=== PATIENT | male | born 1955 | race Caucasian/White ===

== ENCOUNTER 2019-07-07 22:24 | Emergency (ER) | payer OTHER, MEDICAID ==
[~2019-07-07] VITALS: Ht 180.3 cm; Wt 68.0 kg
--- NOTE | 2019-07-07 22:25 | NUR ---
PT BIBA TO BED 05.
--- NOTE | 2019-07-07 22:26 | NUR ---
PT AMBULATED FROM [facility] TO [facility] WITH STEADY GAIT
[2019-07-07 22:27] VITALS: BP 115/74
--- NOTE | 2019-07-07 22:30 | NUR ---
REGINE FROM [facility]. PER EMS, PTS BASELINE AA0X4. PT NON-ORIENTED TO TIME UPON TRIAGE. PER FACILITY, PT HAS STATES THAT HE HAS HAD VISUAL HALLUCINATIONS. PT DENIES HALLUCINATIONS AT THIS TIME. PT ADDS HE IS HAVING CONSTIPATION, UNKNOWN LAST BM. BOWEL SOUNDS ACTIVE IN ALL 4 QUADRANTS. ABDOMEN SOFT AND ORUND, NON-TENDER. VSS. NO DISTRESS NOTED. BED IS DOWN, LOCKED, RAIL X 1, ERMD TO SEE PT. PMH- HTN, ANXIETY
[2019-07-07] MEDS ORDERED: NACL 0.9% 500 ML IV SCH (22:39)
--- NOTE | 2019-07-07 22:42 | NUR ---
DR. GUNTER BEDSIDE EVALUATING PT
--- NOTE | 2019-07-07 22:50 | NUR ---
EKG PERFORMED AT BEDSIDE
--- NOTE | 2019-07-07 22:57 | NUR ---
PT TO RESTROOM WITH A STEADY GAIT
--- NOTE | 2019-07-07 23:00 | NUR ---
PT UNABLE TO GIVE URINE AT THIS TIME
--- NOTE | 2019-07-07 23:08 | NUR ---
PT TAKEN TO CT VIA WC
--- NOTE | 2019-07-07 23:30 | NUR ---
PT RETURNED FROM CT VIA WC
--- NOTE | 2019-07-07 23:33 | NUR ---
XRAY AT BEDSIDE
--- NOTE | 2019-07-07 23:44 | NUR ---
LAB AT BEDSIDE
[2019-07-08 00:04] LABS: HEMATOCRIT 49.9 % (36-52); HEMOGLOBIN 16.6 g/dL (12.0-18.0); MEAN CORPUSCULAR HEMOGLOBIN 30 pg (27-31); MEAN CORPUSCULAR HGB CONC 33 g/dL (33-37); MEAN CORPUSCULAR VOLUME 91.1 fL (80-94); PLATELET COUNT (AUTO) 234 K/uL (140-450); RED BLOOD CELL COUNT(AUTO) 5.48 MIL/uL (4.20-6.10); RED CELL DISTRIBUTION WIDTH 14.1 % (11.6-13.7); WHITE BLOOD COUNT (AUTO) 9.4 K/uL (4.8-10.8)
[2019-07-08 00:17] LABS: EOSINOPHILS % (MANUAL) 2 % (0-4); LYMPHOCYTES % (MANUAL) 14 % (20-46); MONOCYTES % (MANUAL) 5 % (5-12)
--- NOTE | 2019-07-08 00:17 | NUR ---
# 14 FR Urinary catheter inserted utilizing sterile technique. Immediate return of 30 ml YELLOW urine noted. Urine sample collected and sent to lab. Pt tolerated procedure WELL. UPON VISUAL EXAMINATION, PT HAS ENLARGED SCROTOM DUE TO PROSTATE PROBLEMS
[2019-07-08 00:18] LABS: ANION GAP 11.3 (8-16); CREATININE 1.2 mg/dL (0.7-1.3); POTASSIUM 4.3 mmol/L (3.5-5.1)
[2019-07-08 00:20] LABS: PROTHROMBIN TIME 9.9 secs (10.8-13.4)
[2019-07-08 00:21] LABS: ACETAMINOPHEN < 0.5 ug/ml (10-30); SALICYLATE < 2.8 mg/dL (2.8-20.0)
[2019-07-08 00:29] LABS: APPEARANCE,URINE CLEAR (CLEAR); BILIRUBIN,URINE NEGATIVE (NEGATIVE); BLOOD, URINE NEGATIVE (NEGATIVE); COLOR,URINE YELLOW (YELLOW); LEUKOCYTE ESTERASE ,URINE NEGATIVE (NEGATIVE); NITRITE, URINE NEGATIVE (NEGATIVE); PH,URINE 7.5 (5.0-9.0); UGLUCOSE NEGATIVE (NEGATIVE)
[2019-07-08] MEDS ORDERED: LORazepam 2 MG/ML VIAL IVP ONE (00:30)
[2019-07-08 00:33] LABS: ALBUMIN 3.7 g/dL (3.4-5.0); TOTAL BILIRUBIN 0.6 mg/dL (0.0-1.0)
[2019-07-08 00:35] LABS: BARBITURATE, URINE NEG. ng/ml (NEG <=200); BENZODIAZEPINE, URINE POS. ng/mL (NEG <=200); CANNABINOID, URINE NEG. ng/mL (NEG <=50); COCAINE, URINE NEG. ng/mL (NEG <=300); OPIATE, URINE NEG. ng/mL (NEG <=2000); PHENCYCLIDINE SCREEN,URINE NEG. ng/mL (NEG <=25)
[2019-07-08 00:38] LABS: RBC,URINE 0-5 /HPF (0-5); WBC,URINE 0-5 /HPF (0-5)
--- NOTE | 2019-07-08 00:45 | NUR ---
SPOKE TO SADE, PT DAUGHTER. CONTACT NUMBER IS [phone]
--- NOTE | 2019-07-08 00:50 | NUR ---
PT LAYING IN BED, RR EVEN AND UNLABORED. DENIES ANY PAIN. VSS. ALL NEEDS MET.
--- NOTE | 2019-07-08 00:50 | NUR ---
DAUGHTER SADE WILL MOBILITY ARCHITECT PT. D/C PENDING. ERMD MADE AWARE
[2019-07-08 01:00] VITALS: BP 110/87
--- NOTE | 2019-07-08 01:00 | NUR ---
Patient discharged with v/s stable. Written and verbal after care instructions given and explained. Patient alert, oriented X 4 and verbalized understanding of instructions. Ambulatory with steady gait. All questions addressed prior to discharge. ID band removed. Patient advised to follow up with PMD. Rx of XANAX given. Patient educated on indication of medication including possible reaction and side effects. Opportunity to ask questions provided and answered.
--- NOTE | 2019-07-08 01:12 | NUR ---
ASIISTED PT WITH GETTING DRESSED. WAITING IN CHAIR FOR SISTER TO INTERIOR WIRER Addendum: 07/08/19 at 0115 by [email or web address] PTS DAUGHTER
--- NOTE | 2019-07-08 01:16 | NUR ---
PTS DAUGHTER PRESENT FOR PICKUP. DISCHARGE INSTRUCTIONS GIVEN TO PT Addendum: 07/08/19 at 0117 by [email or web address] PRESCRIPTION GIVEN TO DAUGHTER AND DISCHARGE EXPLANATIONS EXPLAINED TO DAUGHTER
== END 2019-07-08 01:00 | disposition home or self-care (01) ==
LOC: MED 22:24
DX: F32.9 Major depressive disorder, single episode, unspecified (principal); J45.909 Unspecified asthma, uncomplicated; K21.9 Gastro-esophageal reflux disease without esophagitis; I10 Essential (primary) hypertension; F41.9 Anxiety disorder, unspecified; Z88.0 Allergy status to penicillin
CPT/HCPCS: 36415; 70450; 71045; 74176; 80053; 80305; 81001; 83605; 83880; 84484; 85025; 85610; 85730; 87040; 87086; 93005; 96374; 99284; C1758; G0480; G0482; J2060; J7030; Q0092

== ENCOUNTER 2019-11-29 11:59 | Inpatient (IN) | payer OTHER, MEDICAID ==
[2019-11-29] VITALS (7 sets, daily range): BP systolic 80–146; BP diastolic 42–91
[~2019-11-29] VITALS: Ht 172.7 cm; Wt 81.6 kg
--- NOTE | 2019-11-29 12:25 | NUR ---
7 DAYS GENERALIZED WEAKNESS ,UNABLE TO EAT,AWAKE ,ALERT, AFIBRILE WITH UNSTEADY GAIT ,SCE CBS, NEGATIVE NEUROLOGIC ABNORMALITY FINDINGS. PMHS HTN. MEDS MAINTAINE.
[2019-11-29 12:43] LABS: APPEARANCE,URINE HAZY (CLEAR); BILIRUBIN,URINE 1+ (NEGATIVE); BLOOD, URINE NEGATIVE (NEGATIVE); COLOR,URINE YELLOW (YELLOW); LEUKOCYTE ESTERASE ,URINE 2+ (NEGATIVE); NITRITE, URINE NEGATIVE (NEGATIVE); UGLUCOSE NEGATIVE (NEGATIVE)
[2019-11-29 13:05] LABS: BASOPHILS # (AUTO) 0.1 K/uL (0.00-0.22); BASOPHILS % (AUTO) 0.6 % (0.0-2.0); EOSINOPHILS # (AUTO) 0.3 K/uL (0-0.4); EOSINOPHILS % (AUTO) 2.1 % (0.0-4.0); HEMATOCRIT 50.4 % (36-52); HEMOGLOBIN 17.1 g/dL (12.0-18.0); LYMPHOCYTES # (AUTO) 1.5 K/uL (2.0-11.5); LYMPHOCYTES % (AUTO) 11.1 % (20.5-51.1); MEAN CORPUSCULAR HEMOGLOBIN 30 pg (27-31); MEAN CORPUSCULAR HGB CONC 34 g/dL (33-37); MEAN CORPUSCULAR VOLUME 88.7 fL (80-94); MONOCYTES # (AUTO) 1.1 K/uL (0.8-1.0); MONOCYTES % (AUTO) 8.4 % (1.7-9.3); NEUTROPHILS # (AUTO) 10.4 K/uL (1.8-7.7); NEUTROPHILS % (AUTO) 77.8 % (42.2-75.2); PLATELET COUNT (AUTO) 293 K/uL (140-450); RED BLOOD CELL COUNT(AUTO) 5.68 MIL/uL (4.20-6.10); RED CELL DISTRIBUTION WIDTH 13.8 % (11.6-13.7); WHITE BLOOD COUNT (AUTO) 13.4 K/uL (4.8-10.8)
[2019-11-29 13:06] LABS: HYALINE CASTS, URINE 0-10 /LPF (None Seen); RBC,URINE 0-5 /HPF (0-5)
--- NOTE | 2019-11-29 13:11 | NUR ---
XRAY ON BEDSIDE.
--- NOTE | 2019-11-29 13:20 | NUR ---
DR HERNANDEZ AT BEDSIDE EVALUATING PT.
--- NOTE | 2019-11-29 13:20 | NUR ---
Dr. Strauss is evaluating the patient at bedside.
[2019-11-29 13:24] LABS: ALBUMIN 3.8 g/dL (3.4-5.0); ANION GAP 7.5 (8-16); CARBON DIOXIDE 27.5 mmol/L (21-32); CREATININE 1.4 mg/dL (0.6-1.3); TOTAL BILIRUBIN 0.7 mg/dL (0.0-1.0)
[2019-11-29] MEDS ORDERED: NACL 0.9% 1,000 ML IV ONE (13:45)
[2019-11-29] MEDS ORDERED: LEVOFLOXACIN 500 MG/D5W PREMIX 100 ML IV ONE (13:45)
[2019-11-29] MEDS ORDERED: HYDROcodone/APAP 5/325 MG 1 TAB TAB PO PRN (14:05)
[2019-11-29] MEDS ORDERED: LORazepam 2 MG/ML VIAL IM/IVP PRN (14:05)
[2019-11-29] MEDS ORDERED: MORPHINE SULFATE 2 MG/ML SYR IVP PRN (14:05)
[2019-11-29] MEDS ORDERED: ONDANSETRON 4 MG/2 ML VIAL IM/IVP PRN (14:05)
[2019-11-29] MEDS ORDERED: ACETAMINOPHEN 325 MG TAB PO PRN (14:05)
[2019-11-29 14:29] LABS: PROTHROMBIN TIME 10.8 secs (10.8-13.4)
[2019-11-29 14:39] LABS: MAGNESIUM 2.1 mg/dL (1.8-2.4); PHOSPHORUS 2.8 mg/dL (2.5-4.9); THYROID STIMULATING HORMONE 4.67 uIU/mL (0.34-3.74)
[2019-11-29] MEDS ORDERED: LISI30TA6 PO (14:54)
[2019-11-29] MEDS ORDERED: VARE1TAB27 PO (14:54)
[2019-11-29] MEDS ORDERED: IBUP-2213 PO (14:54)
[2019-11-29] MEDS ORDERED: ESK300 PO (14:54)
[2019-11-29] MEDS ORDERED: CLON0.1T42 PO (14:54)
[2019-11-29] MEDS ORDERED: PANT40EC PO (14:54)
[2019-11-29] MEDS ORDERED: ZOLP10TA1 PO (14:54)
[2019-11-29] MEDS ORDERED: TRAZ-343 PO (15:06)
[2019-11-29] MEDS ORDERED: DOCU-349 PO (15:06)
[2019-11-29] MEDS ORDERED: ALBU117P INH (15:06)
[2019-11-29] MEDS ORDERED: BUPR-160 PO (15:07)
[2019-11-29] MEDS ORDERED: ALPR1TAB2 PO (15:07)
--- NOTE | 2019-11-29 15:08 | NUR ---
Pt transferred to Med/Surg via BED WITH DAJA DE LEÓN .
[2019-11-29] MEDS: buPROPion 75 MG TAB PO SCH (15:10)
[2019-11-29] MEDS ORDERED: ZOLPIDEM 10 MG TAB PO PRN (15:10)
--- NOTE | 2019-11-29 15:20 | NUR ---
RECEIVED PT FROM ER NURSE VIA HARRY, PT AMBULATED TO THE BED, IV LINE NOTED ON THE RT AC G. 18 WITH NS AND LEVAQUIN IN PLACE. V/S TAKEN BP IS 89/42, PULSE IS 68, TEMP. IS 97.2, O2 SATURATION IS 98% ON ROOM AIR, PT DENIES PAIN, AOX4, NO SIGN OF DISTRESS NOTED AND WILL MONITOR PT.
--- NOTE | 2019-11-29 15:20 | NUR ---
Patient will be admitted to care of dr he. Admited to [facility]. Will go to room 127b. Belongings list completed. Report to Joaquina Vargas.
--- NOTE | 2019-11-29 15:30 | NUR ---
MRSA SWAB DOEN TO PT AND SAMPLE WAS SENT TO LAB.
[2019-11-29] MEDS ORDERED: NACL 0.45% 1,000 ML IV SCH (15:50)
[2019-11-29] MEDS ORDERED: MELATONIN 3 MG TAB PO PRN (16:00)
[2019-11-29] MEDS ORDERED: ALBUTEROL SULFATE/IPRATROPIU 3 ML SOL IH PRN (16:00)
[2019-11-29] MEDS ORDERED: NACL 0.9% 1,000 ML IV SCH (16:10)
--- NOTE | 2019-11-29 16:30 | NUR ---
V/S TAKEN AND BP IS 92/51, PULSE IS 70, TEMP IS 97.2, O2 SATURATION IS 96%, NS BOLUS IS STILL GOING WITH 350ML IN BAG, NO SIGN OF DISTRESS NOTED AND WILL MONITOR PT.
[2019-11-29] MEDS: NACL 0.9% 500 ML IV SCH ×3 (16:49→21:37)
[2019-11-29] MEDS: ALPRAZolam 0.5 MG TAB PO SCH (17:00)
--- NOTE | 2019-11-29 17:30 | NUR ---
PT'S BOLUS OFF 2L WAS FINISHED AND BP IS 114/91, PULSE IS 67, O2 SATURATION IS 96%, INFROMED DR. TOURE OF THE VITAL SIGNS READING.
[2019-11-29] MEDS ORDERED: NACL 0.9% 500 ML IV SCH (18:40)
--- NOTE | 2019-11-29 18:45 | NUR ---
ULTRASOUND OF BILATERAL CAROTID WAS DONE TO PT TO R/O STENOSIS.
--- NOTE | 2019-11-29 19:15 | NUR ---
PT IS OFF THE UNIT FOR A HEAD CT.
--- NOTE | 2019-11-29 19:23 | NUR ---
PT LEFT THE UNIT FOR CT HEAD. RECEIVED REPORT FROM DAY SHIFT NURSE.
--- NOTE | 2019-11-29 19:23 | NUR ---
ENDORSED PT TO POWER REACTOR SUPERVISOR NURSE FOR CONTINUITY OF CARE
--- NOTE | 2019-11-29 19:40 | NUR ---
PT CAME BACK FROM CT. DR. VÁSQUEZ AT BEDSIDE CHECKING THE PT. PT HAS TREMORS TO PATEL UPPER EXT. PT AA0X4. DENIES PAIN OR SOB. ON ROOM AIR. IV TO RIGHT AC#18, PATENT AND INTACT. SAFETY PRECAUTION IN PLACE. CALL LIGHT WITHIN REACH.
--- NOTE | 2019-11-29 20:10 | NUR ---
PT ON CLEAR LIQUID DIET. DR. VÁSQUEZ ORDERED TO GIVE JELLO TO PT. JELLO GIVEN. PT TOLERATED WELL . NO C/O DIFFICULTY SWALLOWING OR COUGH. MADE AWARE.
[2019-11-29] MEDS ORDERED: traZODone 50 MG TAB PO SCH (21:00)
[2019-11-29] MEDS ORDERED: cloNIDine 0.1 MG TAB PO SCH (21:00)
[2019-11-30] VITALS: BP 168/122
--- NOTE | 2019-11-30 00:45 | NUR ---
DR. KULKARNI MADE AWARE OF PT'S BP 168/122. NO NEW ORDER AT THIS TIME.
--- NOTE | 2019-11-30 01:46 | NUR ---
DR. KULKARNI MADE AWARE OF PT'S LEFT SCROTAL EDEMA. MD CHECKED ON PT'S SCROTUM. PER PT'S IT'S BEEN SWOLLEN FOR 10 YRS.
[2019-11-30 04:00] VITALS: BP 101/68
--- NOTE | 2019-11-30 04:30 | NUR ---
PT RESTING IN BED. DENIES PAIN OR SOB. PT STILL HAS TREMORS TO PATEL UPPER EXT. PT KEPT CLEAN, DRY AND COMFORTABLE. CALL LIGHT WITHIN REACH.
[2019-11-30] MEDS: NACL 0.9% 500 ML IV SCH (06:02)
[2019-11-30 06:49] LABS: ANION GAP 12.4 (8-16); CREATININE 1.3 mg/dL (0.6-1.3); POTASSIUM 4.4 mmol/L (3.5-5.1)
[2019-11-30 06:59] LABS: BASOPHILS # (AUTO) 0.1 K/uL (0.00-0.22); BASOPHILS % (AUTO) 0.6 % (0.0-2.0); EOSINOPHILS # (AUTO) 0.3 K/uL (0-0.4); EOSINOPHILS % (AUTO) 2.6 % (0.0-4.0); HEMATOCRIT 45.8 % (36-52); HEMOGLOBIN 14.8 g/dL (12.0-18.0); LYMPHOCYTES # (AUTO) 1.3 K/uL (2.0-11.5); LYMPHOCYTES % (AUTO) 10.5 % (20.5-51.1); MEAN CORPUSCULAR HEMOGLOBIN 30 pg (27-31); MEAN CORPUSCULAR HGB CONC 32 g/dL (33-37); MEAN CORPUSCULAR VOLUME 91.7 fL (80-94); NEUTROPHILS # (AUTO) 9.3 K/uL (1.8-7.7); NEUTROPHILS % (AUTO) 78.3 % (42.2-75.2); PLATELET COUNT (AUTO) 280 K/uL (140-450); RED CELL DISTRIBUTION WIDTH 14.1 % (11.6-13.7); WHITE BLOOD COUNT (AUTO) 11.9 K/uL (4.8-10.8)
[2019-11-30 07:03] LABS: CHOL/HDL RATIO 4.4 (1-4.5); MAGNESIUM 1.8 mg/dL (1.8-2.4); PHOSPHORUS 2.6 mg/dL (2.5-4.9)
[2019-11-30 07:10] LABS: BARBITURATE, URINE NEG. ng/ml (NEG <=200); BENZODIAZEPINE, URINE POS. ng/mL (NEG <=200); CANNABINOID, URINE NEG. ng/mL (NEG <=50); COCAINE, URINE NEG. ng/mL (NEG <=300); OPIATE, URINE NEG. ng/mL (NEG <=2000); PHENCYCLIDINE SCREEN,URINE NEG. ng/mL (NEG <=25)
--- NOTE | 2019-11-30 07:19 | NUR ---
ENDORSED TO DAY SHIFT NURSE. PT IN STABLE CONDITION.
--- NOTE | 2019-11-30 07:20 | NUR ---
RECEIVED PT. FROM FLIGHT CONTROLS ENGINEER NURSE. PT. IS ALERT AND AWAKE IN BED. IV SITE ON THE RIGHT AC 18G WITH NS RUNNING AT 60ML/HR. PT. IS ON ROOM AIR. PT. DENIES PAIN AND IS NOT IN DISTRESS, AOX4. FALL PRECAUTIONS IN PLACE. CALL LIGHT WITHIN REACH. WILL CONTINUE TO MONITOR.
[2019-11-30 08:00] VITALS: BP 131/77
[2019-11-30] MEDS ORDERED: LISINOPRIL 10 MG TAB PO SCH (09:00)
[2019-11-30] MEDS ORDERED: LITHIUM CARBONATE 300 MG TAB PO SCH (09:00)
--- NOTE | 2019-11-30 09:55 | NUR ---
ULTRASOUND IS IN THE ROOM NOW. NO SIGNS OF DISTRESS FROM PATIENT. WILL CONTINUE TO MONITOR.
[2019-11-30] MEDS: ALPRAZolam 0.5 MG TAB PO SCH ×3 (10:05→18:51)
[2019-11-30] MEDS: DOCUSATE SOD/SENNA 50/8.6 MG 1 TAB PO SCH (10:06)
[2019-11-30] MEDS: PANTOPRAZOLE 40 MG TABEC PO SCH (10:06)
--- NOTE | 2019-11-30 10:15 | NUR ---
MORNING MEDICATIONS GIVEN, BP 155/87 O2 STAT 94%. NO COMPLAINS OF PAIN. WILL CONTINUE TO MONITOR.
--- NOTE | 2019-11-30 10:30 | NUR ---
PT EVALUATION DONE TO PT NOW, PT VERY UNSTABLE DUE TO TREMORS.
--- NOTE | 2019-11-30 10:51 | NUR ---
*S.T. Bedside Swallow Eval completed* Eval was initially attempted at 0930. However, pt was having ultrasound. See report for details. Pt presents w/ adequate oropharyngeal swallow across all textures; no overt s/s aspiration observed. Pt is able to self-feed w/ mod assistance due to resting tremors of B/l UEs. Recommend: 1) Continue regular texture diet; thin liquids okay. Straws okay. 2) P.O. meds whole, one at a time. 3) Nsg to assist w/ tray set up and possibly feeding due to resting tremors of UEs, B/L. No further tx indicated at this time as pt is functioning at reported baseline. DC to nsg care. Endorsed to DAJA Vargas. Time [id number]
[2019-11-30] MEDS: NACL 0.9% 1,000 ML IV SCH ×2 (10:58→23:42)
--- NOTE | 2019-11-30 11:02 | NUR ---
DISCHARGE PLANNING: THIS IS A 64 Y/O MALE PATIENT FROM [facility], WHO CAME IN DUE TO GENERALIZED WEAKNESS AND ALOC. PAST MEDICAL HISTORY INCLUDE INSOMINA, HTN, BIPOLAR DISORDER, ASTHMA, GERD, CONSTIPATION AND ANXIETY. INITIAL DIAGNOSIS OF UTI AND GENERALIZED WEAKNESS. CURRENT LABS INCLUDE WBC 11.9, H/H 14.8/45.8, NA/K 136/4.4, BUN/CREA 11/1.3. UDS SHOWED POSITIVE FOR BENZO AND LITHIUM LEVEL IS 1.81. MRSA NARES AND URINE CULTURE PENDING. PSYCHE CONSULT IN PLACE. ON LEVAQUIN AND BREATHING TREATMENT. FOR PT EVAL TODAY. DC PLAN PENDING ON PATIENT'S RESPONSE TO TREATMENT. Addendum: 11/30/19 at 1520 by Carol Alamo CM CONTACTED PETER BARRIENTOS OF [employer] AT [phone] TO PROVIDE UPDATES ON THE PATIENT'S CONDITION. SHE ASKED REGARDING THE DC PLAN. PER DR. NAYLOR DC PLAN WILL DEPEND ON THE PATIENT'S RESPONSE TO TREATMENT AND WILL BE STAYING OVER THE WEEKEND. PETER BARRIENTOS STATED THE THE PATIENT IS ENROLLED ON THEIR PACE PROGRAM IF PATIENT MIGHT NEED PT. I INFORMED HER THAT I WILL HER ON TUESDAY TO PROVIDE UPDATE. Addendum: 12/03/19 at 0854 by Carol Alamo CM CONTACTED PETER MAN AT [phone] REGARDING DC PLAN TODAY. SHE CONFIRMED THAT PATIENT IS ENROLLED WITH THEIR PACE PROGRAM AND WILL NOT BE NEEDING HOME HEALTH SERVICES BECAUSE PATIENT WILL BE EVALUATED IN THEIR PACE CLINIC AND THEY HAVE THEIR OWN PT. CHARGE NURSE MADE AWARE. DR. ALEXANDER MADE AWARE. Addendum: 12/03/19 at 1103 by Carol Alamo CM CONTACTED PETER LICEA AT [phone] REGARDING DC, NO ANSWER. LEFT MESSAGE. Addendum: 12/03/19 at 1325 by Carol Alamo CM PETER ZARATE OF [facility] CALLED BACK TO GET UPDATE ON THE PATIENT. I INFORMED HER THAT PATIENT WAS DC'D TODAY.
[2019-11-30 12:00] VITALS: BP 102/63
--- NOTE | 2019-11-30 13:14 | NUR ---
AFTERNOON MEDICATIONS GIVEN. BP 143/77, HR 73, O2 STAT OF 94%. NO SIGNS OF DISTRESS, WILL CONTINUE TO MONITOR.
--- NOTE | 2019-11-30 13:27 | NUR ---
11/30/19 RD INITIAL ASSESSMENT COMPLETED PLEASE REFER TO NUTRITION ASSESSMENT UNDER CARE ACTIVITY FOR ESTIMATED NUTRITIONAL NEEDS. 1. CONTINUE A REGULAR DIET TOLERATED 2. RECOMMEND ENSURE TID. 3. CONTINUE TO PROVIDE ASSISTANCE WITH MEALS 4. RD TO FOLLOW-UP 3-5 DAYS, MODERATE RISK [address] RD
--- NOTE | 2019-11-30 13:56 | NUR ---
Supply Chain Associate Note: Basic Screen: Yes High Risk DC Screen [place]: [place] Home Relationship: DAUGHTER Pre-Admission Living Arrangements: Other Other: [facility] Prior ADL Independent Current Home Health Name/Tel: N/A Current DME/02 Name/Tel: [facility] Current Hospice Name/Tel: N/A Current Dialysis Name/Tel: N/A Healthcare Decision Maker: Patient Advance Directive No Physician Orders for Life Sustaining Treatment Form No Patient/Family Have Educational Needs No Discipline: Case Mgt/Social Svcs Tentative Discharge Plan/Destination: Other Other: [facility] Will require assistance post discharge: No Referred to Supervisor Of Communications: No Tentative Discharge Plan Summary: Patient is a 64-year-old male admitetd for UTI and generalized weakness. Patient has PMHX of asthma, GERD, and hypertension. Patient was admitted from [facility]. SW contacted [facility] and spoke to nurse [phone]. Nurse stated that patient is self-responsible with medical decisions and is independent with ADLs at baseline. Patient has needed additional assistance with ADLs as of lately. Patient is alert/oriented at baseline. Tentative discharge plan is for patient to return to [facility]. No further needs identified. Signature: TODD Molina Date: Nov 30, 2019 Time: 13:52
--- NOTE | 2019-11-30 14:20 | NUR ---
AUDIT CLERKS SUPERVISORFLOYD FROM [employer] CALLED AND INFORMED NICHELLE MENDOZA, AND GAVE CONTACT INFO [phone],
[2019-11-30] MEDS: buPROPion 75 MG TAB PO SCH (14:30)
[2019-11-30] MEDS: LEVOFLOXACIN 500 MG/D5W PREMIX 100 ML IV SCH (14:30)
--- NOTE | 2019-11-30 14:30 | NUR ---
LEVAQUIN IVPB AND SCHEDULED ORAL MEDICATION GIVEN. BP 117/73, HR 79, O2 STAT 94%. NO DISTRESS NOTED. WILL CONTINUE TO MONITOR.
--- NOTE | 2019-11-30 15:23 | NUR ---
REJI STEWARD CALLED AND SAID THAT SHE SPOKE TO DONOVAN, PT'S INSURANCE, THAT IF PT WILL BE DISCHARGE WITH PHYSICAL THERAPY, DONOVAN SAID THAT PT IS ENROLLED IN THEIR PACE PROGRAM THAT PROVIDES PHYSICAL THERAPY, SO PT DOES NOT NEED HOME HEALTH, DR. TORRES WAS INFORMED AND POLLY THAT PT MIGHT STAY UNTIL THE WEEKEND.
[2019-11-30 16:00] VITALS: BP 117/73
--- NOTE | 2019-11-30 19:25 | NUR ---
ENDORSED PT TO MACHINE WELT BUTTER NURSE FOR CONTINUITY OF CARE.
--- NOTE | 2019-11-30 19:25 | NUR ---
RECIEVED PT AAOX4 , NID - 02 SAT WNL . IV SITE INTACT AND PATENT . FALL RISK DUE TO TREMORS AND UNSTEADY GAIT - SERUM LITHIUM LEVEL HIGH . ON SAFETY / FALL PRECAUTION PROTOCOL - CALL LIGHT , URINAL WITHIN REACH - PT INFORMED BY AM NURSE HE HAVE TO STAY TO BED FOR A WHILE DUE TO HE IS HIGH RISK FALL . POC DISCUSSED AND VERBALIZE UNDERSTANDING . WILL CONT. TO MONITOR.
[2019-11-30 20:00] VITALS: BP 110/60
--- NOTE | 2019-11-30 22:00 | NUR ---
MADE ROUNDS . NO S/ S OF ACUTE DISTRESS NOTED AT THIS TIME , WILL CONT. TO MONITOR.
[2019-12-01] VITALS: BP 111/60
--- NOTE | 2019-12-01 | NUR ---
WATCHING TV . NO COMPLAIN MADE AT THIS TIME - WILL CONT. TO MONITOR.
--- NOTE | 2019-12-01 02:00 | NUR ---
SLEEPING - CHEST RISE AND FALL EQUALLY - WILL CONT. TO0 MONITOR.
[2019-12-01 04:00] VITALS: BP 110/59
[2019-12-01 07:05] LABS: ANION GAP 10.4 (8-16); CARBON DIOXIDE 25.5 mmol/L (21-32); CREATININE 1.2 mg/dL (0.6-1.3); POTASSIUM 3.9 mmol/L (3.5-5.1)
[2019-12-01 07:07] LABS: BASOPHILS # (AUTO) 0.1 K/uL (0.00-0.22); BASOPHILS % (AUTO) 0.5 % (0.0-2.0); EOSINOPHILS # (AUTO) 0.2 K/uL (0-0.4); EOSINOPHILS % (AUTO) 1.9 % (0.0-4.0); HEMATOCRIT 44.3 % (36-52); HEMOGLOBIN 14.7 g/dL (12.0-18.0); LYMPHOCYTES # (AUTO) 1.6 K/uL (2.0-11.5); LYMPHOCYTES % (AUTO) 13.6 % (20.5-51.1); MEAN CORPUSCULAR HEMOGLOBIN 30 pg (27-31); MEAN CORPUSCULAR HGB CONC 33 g/dL (33-37); MEAN CORPUSCULAR VOLUME 90.5 fL (80-94); MONOCYTES # (AUTO) 0.9 K/uL (0.8-1.0); MONOCYTES % (AUTO) 7.7 % (1.7-9.3); NEUTROPHILS % (AUTO) 76.3 % (42.2-75.2); PLATELET COUNT (AUTO) 285 K/uL (140-450); RED CELL DISTRIBUTION WIDTH 13.8 % (11.6-13.7); WHITE BLOOD COUNT (AUTO) 11.8 K/uL (4.8-10.8)
[2019-12-01 07:18] LABS: PHOSPHORUS 2.3 mg/dL (2.5-4.9)
--- NOTE | 2019-12-01 07:20 | NUR ---
RECEIVED REPORT FROM NIGHT NURSE FOR CONTINUITY OF CARE, PT IS AWAKE AND ALERT, SITTING IN BED, PT IS STABLE WITH EVEN AND UNLABORED RESPIRATIONS ON RA, PT HAS L AC 22G, INFUSING NS AT 60M/H, INTRODUCE SELF, UPDATE WHITEBOARD, SAFETY MEASURES IN PLACE, CALL LIGHT WITHIN REACH, WILL CONTINUE TO MONITOR.
[2019-12-01 07:34] LABS: MAGNESIUM 1.7 mg/dL (1.8-2.4)
[2019-12-01 08:00] VITALS: BP 142/80
[2019-12-01] MEDS: PANTOPRAZOLE 40 MG TABEC PO SCH (09:06)
[2019-12-01] MEDS: DOCUSATE SOD/SENNA 50/8.6 MG 1 TAB PO SCH (09:07)
[2019-12-01] MEDS: ALPRAZolam 0.5 MG TAB PO SCH (09:07)
--- NOTE | 2019-12-01 09:09 | NUR ---
ADMINISTERED ORDERED MEDICATION, EDUCATION GIVEN, PT VERBALIZED UNDERSTANDING, PT TOLERATED MEDS WELL, PT IS STABLE, CALL LIGHT WITHIN REACH.
--- NOTE | 2019-12-01 11:00 | NUR ---
PT ASLEEP IN BED, NO SIGNS OF DISTRESS NOTED, RESPIRATIONS ARE EVEN AND UNLABORED ON ROOM AIR, PT IS STABLE, CALL LIGHT WITHIN REACH.
[2019-12-01 12:00] VITALS: BP 126/75
--- NOTE | 2019-12-01 13:00 | NUR ---
PT RESTING IN BED, NO SIGNS OF DISTRESS NOTED, PT IS STABLE, CALL LIGHT WITHIN REACH.
[2019-12-01] MEDS: LEVOFLOXACIN 500 MG/D5W PREMIX 100 ML IV SCH (15:12)
--- NOTE | 2019-12-01 15:15 | NUR ---
ADMINISTERED ORDERED MEDICATION, EDUCATION GIVEN, PT VERBALIZED UNDERSTANDING, PT IS STABLE, CALL LIGHT WITHIN REACH.
[2019-12-01 16:00] VITALS: BP 136/79
[2019-12-01] MEDS: NACL 0.9% 1,000 ML IV SCH (16:22)
[2019-12-01] MEDS ORDERED: MAGNESIUM OXIDE 400 MG TAB PO SCH (16:30)
--- NOTE | 2019-12-01 16:34 | NUR ---
ADMINISTERED ORDERED MEDICATION, PT EDUCATION GIVEN, PT VERBALIZED UNDERSTANDING, PT TOLERATED WELL, PT IS STABLE, CALL LIGHT WITHIN REACH, SAFETY MEASURES IN PLACE.
[2019-12-01] MEDS ORDERED: SODIUM PHOS / POTASSIUM PHOS 1 PKT PDR PO SCH (18:50)
--- NOTE | 2019-12-01 19:27 | NUR ---
GAVE REPORT TO NIGHT NURSE FOR CONTINUITY OF CARE, PT IS STABLE.
--- NOTE | 2019-12-01 19:28 | NUR ---
RECEIVED PT IN STABLE CONDITION FROM AM NURSE. MED SURG PT. AWAKE,ALERT AND ORIENTED X 3. WITH NO C/O ANY DISCOMFORT NOR PAIN NOTED. IVF INFUSING WELL ON THE LEFT AC G#20. CLEAR AND PATENT. BEDREST. BED ON LOW POSITION. FREQ ROUNDS NEEDED. BED AALRM ON. CALL LIGHT PLACED WITHIN EASY REACH. WILL CONTINUE TO MONITOR.
[2019-12-01] MEDS: traZODone 50 MG TAB PO SCH (20:59)
[2019-12-01] MEDS ORDERED: ALPRAZolam 0.5 MG TAB PO SCH (21:00)
--- NOTE | 2019-12-01 21:05 | NUR ---
ADMINISTERED DUE MEDS. TOLERATED WELL. NO SOB NOTED. NO C/O PAIN/DISCOMFORT.
--- NOTE | 2019-12-01 22:30 | NUR ---
MAD ROUNDS . PT STILL AWAKE. NO C/O ANY DISCOMFORT NOTED. WILL CONTINUE TO MONITOR.
[2019-12-02] VITALS: BP 137/77
[2019-12-02] MEDS: NACL 0.9% 1,000 ML IV SCH (00:28)
--- NOTE | 2019-12-02 00:28 | NUR ---
PATIENT IS SLEEPING. EASILY AROUSABLE THROUGH VERBAL. NO SOB NOTED.
--- NOTE | 2019-12-02 02:10 | NUR ---
PATIENT IS SLEEPING. NO SOB NOTED.
--- NOTE | 2019-12-02 03:30 | NUR ---
PT AWAKE. REQUESTED FOR SOME PUDDING. PROVIDED AND TOLERATED WELL.
--- NOTE | 2019-12-02 05:00 | NUR ---
ASLEEP. NO S/S FO ANY DISCOMFORT NOTED.
--- NOTE | 2019-12-02 07:24 | NUR ---
RECEIVED REPORT FROM NIGHT NURSE FOR CONTINUITY OF CARE, PT IS STABLE IN BED, PT IS AA0X3, PT HAS VISIBLE TREMORS, PT REFUSED SCD HE STATES THEY ARE UNCOMFORTABLE, PT HAS LAC 20G INFUSING NS AT 60ML/H, INTRODUCE SELF, UPDATED WHITEBOARD, SAFETY MEASURES IN PLACE, ALL NEEDS MET AT HIS TIME, CALL LIGHT WITHIN REACH.
--- NOTE | 2019-12-02 07:25 | NUR ---
ENDORSED PT IN STABLE CONDITION TO AM NURSE FOR CONTINUITY OF CARE.
[2019-12-02 07:48] LABS: ANION GAP 11.9 (8-16); CARBON DIOXIDE 26.9 mmol/L (21-32); CREATININE 1.1 mg/dL (0.6-1.3); POTASSIUM 3.8 mmol/L (3.5-5.1)
[2019-12-02 08:00] VITALS: BP 133/63
[2019-12-02 08:08] LABS: BASOPHILS # (AUTO) 0.1 K/uL (0.00-0.22); BASOPHILS % (AUTO) 0.6 % (0.0-2.0); EOSINOPHILS # (AUTO) 0.2 K/uL (0-0.4); HEMATOCRIT 47.8 % (36-52); HEMOGLOBIN 15.8 g/dL (12.0-18.0); LYMPHOCYTES # (AUTO) 1.8 K/uL (2.0-11.5); LYMPHOCYTES % (AUTO) 16.2 % (20.5-51.1); MEAN CORPUSCULAR HEMOGLOBIN 30 pg (27-31); MEAN CORPUSCULAR HGB CONC 33 g/dL (33-37); MEAN CORPUSCULAR VOLUME 90.6 fL (80-94); MONOCYTES % (AUTO) 9.2 % (1.7-9.3); PLATELET COUNT (AUTO) 301 K/uL (140-450); RED BLOOD CELL COUNT(AUTO) 5.28 MIL/uL (4.20-6.10); RED CELL DISTRIBUTION WIDTH 14.1 % (11.6-13.7); WHITE BLOOD COUNT (AUTO) 11.1 K/uL (4.8-10.8)
[2019-12-02] MEDS: PANTOPRAZOLE 40 MG TABEC PO SCH (08:58)
[2019-12-02] MEDS: DOCUSATE SOD/SENNA 50/8.6 MG 1 TAB PO SCH (08:58)
--- NOTE | 2019-12-02 09:00 | NUR ---
ADMINISTERED ORDERED MEDICATION, EDUCATION GIVEN, PT VERBALIZED UNDERSTANDING, PT TOLERATED MEDICATION WELL, PT IS STABLE, CALL LIGHT WITHIN REACH.
[2019-12-02 09:13] LABS: PHOSPHORUS 3.5 mg/dL (2.5-4.9)
--- NOTE | 2019-12-02 11:05 | NUR ---
PT ASLEEP IN BED, PT IS STABLE, NO SIGNS OF DISTRESS NOTED, CALL LIGHT WITHIN REACH, SAFETY MEASURES IN PLACE.
[2019-12-02] MEDS: LEVOFLOXACIN 500 MG/D5W PREMIX 100 ML IV SCH (15:37)
--- NOTE | 2019-12-02 15:40 | NUR ---
ADMINISTERED ORDERED MEDICATION, EDUCATION GIVEN, PT VERBALIZED UNDERSTANDING, PT IS STABLE, CALL LIGHT WITHIN REACH.
[2019-12-02 16:00] VITALS: BP 130/75
--- NOTE | 2019-12-02 19:25 | NUR ---
GAVE REPORT TO NIGHT NURSE FOR CONTINUITY OF CARE, PT IS STABLE.
--- NOTE | 2019-12-02 19:30 | NUR ---
RECEIVED REPORT FROM DAY SHIFT NURSE. PATIENT IN STABLE CONDITION. KEPT COMFORTABLE. SAFETY PRECAUTIONS OBSERVED AT ALL TIMES. BED IN LOW POSITION, SIDE RAILS RAISED, BED ALARM ON, CALL LIGHT WITHIN REACH. WILL CONTINUE TO MONITOR.
[2019-12-02] MEDS ORDERED: ALPRAZolam 0.5 MG TAB ONE (19:50)
[2019-12-02] MEDS: traZODone 50 MG TAB PO SCH (19:55)
[2019-12-02] MEDS: ALPRAZolam 0.5 MG TAB PO SCH (19:55)
--- NOTE | 2019-12-02 20:04 | NUR ---
RECEIVED PT FROM AM SHIFT. PT IN NO APPARENT RESPIRATORY DISTRESS AT THIS TIME: HR 96, RR 18, CLEAR BREATH SOUNDS, AND SPO2 95% ON ROOM AIR. NO INDICATION FOR HHN PRN TX AT THIS TIME. PT WAS INFORMED TO CALL PAYROLL MACHINE OPERATOR GOVERNMENT CLERK FOR PRN TX WHEN FEELING SOB. WILL CONTINUE TO MONITOR PT.
[2019-12-02] MEDS ORDERED: ALPRAZolam 0.5 MG TAB PO SCH (21:00)
--- NOTE | 2019-12-02 23:15 | NUR ---
IV ACCESS ON LEFT AC PULLED OUT. INSERTED NEW IV ACCESS ON LEFT HAND G22. CATHETER INTACT.
[2019-12-03 00:37] VITALS: BP 138/70
[2019-12-03] MEDS: NACL 0.9% 1,000 ML IV SCH (01:42)
--- NOTE | 2019-12-03 01:50 | NUR ---
MADE ROUNDS. PATIENT AWAKE. IV ACCESS PULLED OUT AGAIN. ATTEMPTED TO REINSERT BUT PATIENT VERBALIZED REFUSAL TO START A NEW IV ACCESS. DR. KIM INFORMED ABOUT INCIDENCE AND SAID ITS OKAY TO HAVE NO IV ACCESS FOR NOW.
--- NOTE | 2019-12-03 03:16 | NUR ---
ROUNDS DONE. PATIENT SLEEPING. NO SIGNS OF DISTRESS NOTED AT THIS TIME. SAFETY PRECAUTIONS OBSERVED. SIDE RAILS UP, BED IN LOW POSITION, CALL LIGHT WITHIN REACH. WILL CONTINUE TO MONITOR.
--- NOTE | 2019-12-03 04:58 | NUR ---
MARINE CARGO SPECIALIST REPORTED UNABLE TO DRAW BLOOD FOR LAB AT THIS TIME. PATIENT REFUSED. WILL TRY TO DRAW BLOOD AGAIN LATER.
--- NOTE | 2019-12-03 07:30 | NUR ---
ENDORSED TO MORNING SHIFT. PATIENT IN STABLE CONDITION. NO COMPLAINTS OF PAIN AT THIS TIME. SAFETY MEASURES IN PLACE.
--- NOTE | 2019-12-03 07:31 | NUR ---
Received report from pm nurse Diandra. Pt resting in bed, awake, no signs of distress, respirations even & nonlabored in room air. Call light within reach. Bed alarm on.
[2019-12-03 08:00] VITALS: BP 137/78
[2019-12-03] MEDS: PANTOPRAZOLE 40 MG TABEC PO SCH (08:28)
[2019-12-03] MEDS: ALPRAZolam 0.5 MG TAB PO SCH (08:28)
[2019-12-03] MEDS: DOCUSATE SOD/SENNA 50/8.6 MG 1 TAB PO SCH (08:28)
--- NOTE | 2019-12-03 08:57 | NUR ---
CONTACTED [facility], SPOKE WITH KEISHA REGARDING PT'S DISCHARGE BACK TO THEIR ASSISTED LIVING FACILITY. PER KEISHA, ETA WILL BE AT 10 AM. MERISSA MADE AWARE.
[2019-12-03] MEDS ORDERED: DIVALPROEX 250 MG TABEC PO SCH (09:00)
[2019-12-03] MEDS ORDERED: DIVA250E1 PO (09:09)
[2019-12-03] MEDS ORDERED: ALPR1TAB2 PO (09:09)
--- NOTE | 2019-12-03 10:00 | NUR ---
Bed bath provided by MANAGER DATA WAREHOUSING and assisted pt to [facility] gown d/t pt's own clothes stained with urine. cottage supervisor from [facility] for pt arrived but pt insisted he wants to change into his regular clothes despite the urine stains. [facility] staff states she will just come back when patient is ready then left the unit. Charge nurse informed.
--- NOTE | 2019-12-03 10:15 | NUR ---
Patient changed into his regular clothes and states he is ready for discharge. Charge nurse called Nya Gaitan for pick-up, but truss driver helper not available and states will come back at 1230. Patient notified and instructed to wait in room. Pt verbalized understanding.
--- NOTE | 2019-12-03 10:20 | NUR ---
Written and verbal discharge instructions provided to patient who was able to repeat back the teachings provided to him. Pt sitting at edge of bed in room 127B waiting for molded goods spot picker.
[2019-12-03 12:23] LABS: ANION GAP 15.5 (8-16); CARBON DIOXIDE 22.7 mmol/L (21-32); CREATININE 1.1 mg/dL (0.6-1.3); POTASSIUM 4.2 mmol/L (3.5-5.1)
[2019-12-03 12:26] LABS: BASOPHILS # (AUTO) 0.1 K/uL (0.00-0.22); BASOPHILS % (AUTO) 0.8 % (0.0-2.0); EOSINOPHILS # (AUTO) 0.1 K/uL (0-0.4); EOSINOPHILS % (AUTO) 0.9 % (0.0-4.0); HEMATOCRIT 49.4 % (36-52); HEMOGLOBIN 16.2 g/dL (12.0-18.0); LYMPHOCYTES % (AUTO) 13.5 % (20.5-51.1); MEAN CORPUSCULAR HEMOGLOBIN 30 pg (27-31); MEAN CORPUSCULAR HGB CONC 33 g/dL (33-37); MEAN CORPUSCULAR VOLUME 90.6 fL (80-94); MONOCYTES # (AUTO) 1.4 K/uL (0.8-1.0); MONOCYTES % (AUTO) 9.3 % (1.7-9.3); NEUTROPHILS # (AUTO) 11.4 K/uL (1.8-7.7); NEUTROPHILS % (AUTO) 75.5 % (42.2-75.2); PLATELET COUNT (AUTO) 340 K/uL (140-450); RED BLOOD CELL COUNT(AUTO) 5.46 MIL/uL (4.20-6.10); RED CELL DISTRIBUTION WIDTH 13.9 % (11.6-13.7); WHITE BLOOD COUNT (AUTO) 15.1 K/uL (4.8-10.8)
--- NOTE | 2019-12-03 12:40 | NUR ---
Nya Gaitan log driver dropped off clean clothes for patient in front lobby then left without waiting for patient. Assisted patient to change into clean clothes. Called Nya Gaitan again to inform them patient is ready for discharge. ETA in 20min.
[2019-12-03] MEDS ORDERED: LACT10CA1 PO (13:17)
[2019-12-03] MEDS ORDERED: LEVO750T2 PO (13:17)
--- NOTE | 2019-12-03 13:30 | NUR ---
Bandsaw Operator from [facility] arrived in front lobby. Pt left unit via wheelchair in stable condition, all belongings with patient.
[2019-12-03 13:46] LABS: MAGNESIUM 1.9 mg/dL (1.8-2.4)
[2019-12-04] MEDS ORDERED: ARIPiprazole 10 MG TAB PO SCH (09:00)
== END 2019-12-03 13:35 | DRG 682 ==
LOC: MED 11:59 → MMU 14:42
PROVIDERS: ADMIT General Practice; ATTEND General Practice
DX: N17.0 Acute kidney failure with tubular necrosis (principal); G93.41 Metabolic encephalopathy; N39.0 Urinary tract infection, site not specified; G45.8 Other transient cerebral ischemic attacks and related syndromes; E87.1 Hypo-osmolality and hyponatremia; E02 Subclinical iodine-deficiency hypothyroidism; F31.9 Bipolar disorder, unspecified; J44.9 Chronic obstructive pulmonary disease, unspecified; K21.9 Gastro-esophageal reflux disease without esophagitis; K59.00 Constipation, unspecified; F41.9 Anxiety disorder, unspecified; N43.2 Other hydrocele; R26.9 Unspecified abnormalities of gait and mobility; I10 Essential (primary) hypertension; J45.909 Unspecified asthma, uncomplicated; T43.595A Adverse effect of other antipsychotics and neuroleptics, initial encounter; Y92.89 Other specified places as the place of occurrence of the external cause; Z88.0 Allergy status to penicillin; Z90.49 Acquired absence of other specified parts of digestive tract
CPT/HCPCS: 36415; 70450; 71045; 76870; 80048; 80053; 80178; 80305; 81001; 82140; 82550; 82948; 83036; 83605; 83690; 83735; 83880; 84100; 84439; 84443; 84484; 85025; 85610; 85730; 87040; 87081; 87086; 87804; 92610; 93005; 93880; 96374; 97112; 97116; 97161-GP; 99285; J1956; J7030; Q0092

== ENCOUNTER 2021-10-27 12:32 | Emergency (ER) | payer OTHER, MEDICAID ==
[~2021-10-27] VITALS: Ht 177.8 cm; Wt 86.2 kg
[~2021-10-27 12:32] MED LIST: ALBU117P INH; ALPR1TAB2 PO; BUPR-160 PO; DIVA250E1 PO; DOCU-349 PO; IBUP-2213 PO; LACT10CA1 PO; LEVO750T2 PO; LISI30TA6 PO; PANT40EC PO; TRAZ-343 PO; VARE1TAB27 PO; ZOLP10TA1 PO
[2021-10-27 12:41] VITALS: BP 112/83
[2021-10-27] MEDS ORDERED: HYD2.5C RC (13:21)
[2021-10-27] MEDS ORDERED: PROM6.2590 PO (13:21)
[2021-10-27 13:31] VITALS: BP 112/83
--- NOTE | 2021-10-27 13:31 | NUR ---
PATIENT BIB [place] [employer]. PATIENT EXAMINED BY DR. TOMLINSON. PATIENT MEDICALLY CLEARED AND RELEASED IN CUSTODY IN STABLE CONDITION. ORIGINAL PRE-BOOK FORM GIVEN TO OFFICER YARITZA.
--- NOTE | 2021-10-27 13:32 | NUR ---
Patient discharged with v/s stable. Written and verbal after care instructions given and explained. Patient alert, oriented and verbalized understanding of instructions. Police with in custody. All questions addressed prior to discharge. ID band removed. Patient advised to follow up with PMD. Rx of HYDROCORTISONE AND PROMETHAZINE given. Patient educated on indication of medication including possible reaction and side effects. Opportunity to ask questions provided and answered.
== END 2021-10-27 13:31 ==
LOC: MED 12:32
DX: J44.1 Chronic obstructive pulmonary disease with (acute) exacerbation (principal); L30.9 Dermatitis, unspecified; I10 Essential (primary) hypertension; Z88.0 Allergy status to penicillin; Z79.899 Other long term (current) drug therapy
CPT/HCPCS: 99283

== ENCOUNTER 2021-10-29 11:12 | Emergency (ER) | payer OTHER, MEDICAID ==
[~2021-10-29] VITALS: Ht 177.8 cm; Wt 86.2 kg
[~2021-10-29 11:12] MED LIST changes: +HYD2.5C RC; +PROM6.2590 PO
[2021-10-29 11:13] VITALS: BP 132/89
--- NOTE | 2021-10-29 11:46 | NUR ---
PATIENT [facility] [employer]. PATIENT EXAMINED BY DR. DENNIS. PATIENT MEDICALLY CLEARED AND RELEASED IN CUSTODY IN STABLE CONDITION. ORIGINAL PRE-BOOK FORM GIVEN TO OFFICER LEV.
--- NOTE | 2021-10-29 11:46 | NUR ---
pt provided with eye wash bedside
--- NOTE | 2021-10-29 11:46 | NUR ---
Patient discharged with v/s stable. Written and verbal after care instructions given and explained. Patient verbalized understanding. Police with in custody. All questions addressed prior to discharge. Advised to follow up with PMD.
[2021-10-29 11:47] VITALS: BP 132/89
== END 2021-10-29 11:46 ==
LOC: MED 11:12
DX: T14.8XXA Other injury of unspecified body region, initial encounter (principal); H10.213 Acute toxic conjunctivitis, bilateral; L82.1 Other seborrheic keratosis; J44.9 Chronic obstructive pulmonary disease, unspecified; I10 Essential (primary) hypertension; E78.5 Hyperlipidemia, unspecified; F17.200 Nicotine dependence, unspecified, uncomplicated; Z71.6 Tobacco abuse counseling; Z98.890 Other specified postprocedural states; Z90.49 Acquired absence of other specified parts of digestive tract; Z02.89 Encounter for other administrative examinations; Z88.0 Allergy status to penicillin; Z79.899 Other long term (current) drug therapy; X58.XXXA Exposure to other specified factors, initial encounter; Y93.89 Activity, other specified; Y92.89 Other specified places as the place of occurrence of the external cause; Y99.8 Other external cause status
CPT/HCPCS: 99283; 99284